=== PATIENT | female | born 1975 | race Caucasian/White ===

== ENCOUNTER 2017-11-29 00:09 | Emergency (ER) | payer SELFPAY | END 2017-11-29 01:23 | disposition left against medical advice (07) | LOC: ER 00:09 | DX: Z00.8 Encounter for other general examination (principal); Z53.21 Procedure and treatment not carried out due to patient leaving prior to being seen by health care provider ==

== ENCOUNTER 2018-03-06 13:55 | Emergency (ER) | payer SELFPAY ==
[~2018-03-06] VITALS: Ht 170.2 cm; Wt 77.0 kg
[2018-03-06 15:59] LABS: *BARBITURATES SCREEN URINE NEGATIVE (NEGATIVE); *COCAINE SCREEN URINE NEGATIVE (NEGATIVE); OPIATES URINE SCREEN NEGATIVE (NEGATIVE); PHENCYCLIDINE URINE SCREEN NEGATIVE (NEGATIVE)
[2018-03-06 16:00] LABS: *BENZODIAZEPINES SCREEN URINE NEGATIVE (NEGATIVE); METHADONE URINE SCREEN NEGATIVE (NEGATIVE)
[2018-03-06 16:02] LABS: *AMPHETAMINES SCREEN URINE PRESUMTIVE POSITIVE (NEGATIVE); CANNABINOID URINE SCREEN PRESUMTIVE POSITIVE (NEGATIVE)
[2018-03-06 17:04] LABS: CHLORIDE 106 mEq/L (98-107)
[2018-03-06 17:06] LABS: BASOPHILS % 0.8 % (0.0-2.0); EOSINOPHILS % 1.1 % (0.0-5.0); HEMATOCRIT. 38.9 % (36.0-48.0); HEMOGLOBIN. 13.2 g/dL (12.0-16.0); LYMPHOCYTES % 28.1 % (20.0-50.0); MEAN CORPUSCULAR HEMOGLOBIN 29.8 pg (28.0-32.0); MEAN CORPUSCULAR VOLUME 87.6 fL (81.0-99.0); MEAN PLATELET VOLUME 7.4 fl (7.4-10.4); MONOCYTES % 10.5 % (2.0-8.0); NEUTROPHILS % 59.5 % (40.0-76.0); PLATELET 384 x1000/uL (130-400); RED BLOOD CELL COUNT 4.44 mill/uL (4.2-5.4); RED CELL DISTRIBUTION WIDTH 13.9 % (11.6-14.6)
[2018-03-06 17:10] LABS: ETHANOL BLOOD < 10 mg/dL
[2018-03-06 17:11] LABS: HCG SCREEN NEGATIVE
[2018-03-07 13:09] VITALS: BP 125/70
== END 2018-03-07 13:14 | disposition home or self-care (01) ==
LOC: ER 13:55
DX: R44.0 Auditory hallucinations (principal); F32.9 Major depressive disorder, single episode, unspecified; F15.10 Other stimulant abuse, uncomplicated; F12.10 Cannabis abuse, uncomplicated; F17.200 Nicotine dependence, unspecified, uncomplicated; Z90.49 Acquired absence of other specified parts of digestive tract
CPT/HCPCS: 36415; 80048; 80305; 80307; 80329; 84703; 85025; 99284; G0482

== ENCOUNTER 2020-08-25 17:27 | Emergency (ER) | payer MEDICAID ==
[~2020-08-25] VITALS: Ht 167.6 cm; Wt 66.0 kg
[2020-08-25] MEDS ORDERED: ACETAMINOPHEN 325MG TABLET PO ONE (18:00)
[2020-08-25 20:28] VITALS: BP 118/77
== END 2020-08-25 20:30 | disposition home or self-care (01) ==
LOC: ER 17:27
DX: G89.29 Other chronic pain (principal); M25.561 Pain in right knee; M25.562 Pain in left knee; F31.9 Bipolar disorder, unspecified; F15.10 Other stimulant abuse, uncomplicated; Z90.49 Acquired absence of other specified parts of digestive tract
CPT/HCPCS: 73560; 73610; 99284

== ENCOUNTER 2021-04-11 17:25 | Emergency (ER) | payer MEDICAID, OTHER ==
[~2021-04-11] VITALS: Ht 170.2 cm; Wt 77.1 kg
[2021-04-11 18:10] VITALS: BP 100/78
[2021-04-11] MEDS ORDERED: IBUP-2028 MT (20:32)
== END 2021-04-11 20:58 | disposition home or self-care (01) ==
LOC: ER 17:25
DX: M72.2 Plantar fascial fibromatosis (principal); Z90.49 Acquired absence of other specified parts of digestive tract; Z88.8 Allergy status to other drugs, medicaments and biological substances
CPT/HCPCS: 81025; 99282

== ENCOUNTER 2021-06-14 07:36 | Emergency (ER) | payer MEDICAID, OTHER ==
[~2021-06-14] VITALS: Ht 170.2 cm; Wt 82.0 kg
[~2021-06-14 07:36] MED LIST: IBUP-2028 MT
[2021-06-14 07:39] VITALS: BP 96/95
== END 2021-06-14 07:59 | disposition home or self-care (01) ==
LOC: ER 07:36
DX: S30.861A Insect bite (nonvenomous) of abdominal wall, initial encounter (principal); S80.862A Insect bite (nonvenomous), left lower leg, initial encounter; S80.861A Insect bite (nonvenomous), right lower leg, initial encounter; S40.862A Insect bite (nonvenomous) of left upper arm, initial encounter; S40.861A Insect bite (nonvenomous) of right upper arm, initial encounter; F15.10 Other stimulant abuse, uncomplicated; Z90.49 Acquired absence of other specified parts of digestive tract; Z88.8 Allergy status to other drugs, medicaments and biological substances; W57.XXXA Bitten or stung by nonvenomous insect and other nonvenomous arthropods, initial encounter; Y93.89 Activity, other specified; Y92.013 Bedroom of single-family (private) house as the place of occurrence of the external cause
CPT/HCPCS: 99281

== ENCOUNTER 2021-10-06 08:45 | Emergency (ER) | payer MEDICAID, OTHER ==
[~2021-10-06] VITALS: Ht 170.2 cm; Wt 86.0 kg
[2021-10-06 08:54] VITALS: BP 114/57
== END 2021-10-06 10:06 | disposition home or self-care (01) ==
LOC: ER 08:45
DX: M79.10 Myalgia, unspecified site (principal); F15.10 Other stimulant abuse, uncomplicated; Z59.00 Homelessness unspecified; Z86.59 Personal history of other mental and behavioral disorders; Z90.49 Acquired absence of other specified parts of digestive tract
CPT/HCPCS: 99281

== ENCOUNTER 2021-10-06 15:19 | Emergency (ER) | payer MEDICAID, OTHER ==
[~2021-10-06] VITALS: Ht 170.2 cm; Wt 86.0 kg
[2021-10-06 15:50] VITALS: BP 113/66
== END 2021-10-06 22:20 | disposition left against medical advice (07) ==
LOC: ER 15:19
DX: Z53.21 Procedure and treatment not carried out due to patient leaving prior to being seen by health care provider (principal)

== ENCOUNTER 2021-12-11 15:18 | Emergency (ER) | payer MEDICAID ==
[~2021-12-11] VITALS: Ht 172.7 cm; Wt 77.0 kg
[2021-12-11 15:32] VITALS: BP 91/66
[2021-12-11] MEDS ORDERED: BACITRACIN ZINC OINT UDPKT TOP ONE (17:45)
[2021-12-11] MEDS ORDERED: LIDOCAINE HCL/EPINEPHRINE 1%-EPI 1:100,000 20 ML VIAL INFIL ONE (17:45)
[2021-12-11] MEDS ORDERED: SULFAMETHOXAZOLE/TRIMETHOPRIM 800/160MG TABLET PO ONE (18:15)
[2021-12-11] MEDS ORDERED: SULF1TAB48 MT (18:32)
[2021-12-11] MEDS ORDERED: IBUP-2029 MT (18:32)
== END 2021-12-11 18:53 | disposition home or self-care (01) ==
LOC: ER 15:18
DX: L03.317 Cellulitis of buttock (principal); L02.31 Cutaneous abscess of buttock; F15.10 Other stimulant abuse, uncomplicated; F17.210 Nicotine dependence, cigarettes, uncomplicated; Z90.49 Acquired absence of other specified parts of digestive tract; Z88.8 Allergy status to other drugs, medicaments and biological substances
CPT/HCPCS: 10060; 81025; 99283; J3490

== ENCOUNTER 2021-12-13 07:48 | Emergency (ER) | payer MEDICAID ==
[~2021-12-13] VITALS: Ht 170.2 cm; Wt 86.0 kg
[~2021-12-13 07:48] MED LIST changes: +IBUP-2029 MT; +SULF1TAB48 MT
[2021-12-13 07:55] VITALS: BP 108/72
== END 2021-12-13 09:22 | disposition home or self-care (01) ==
LOC: ER 08:17
DX: Z48.00 Encounter for change or removal of nonsurgical wound dressing (principal)
CPT/HCPCS: 99281

== ENCOUNTER 2022-04-30 05:31 | Emergency (ER) | payer MEDICAID, OTHER ==
[~2022-04-30] VITALS: Ht 170.2 cm; Wt 91.0 kg
[2022-04-30 06:09] VITALS: BP 91/60
[2022-04-30 08:54] LABS: BASOPHILS % 0.5 % (0.0-2.0); EOSINOPHILS % 1.3 % (0.0-5.0); HEMATOCRIT. 32.5 % (36.0-48.0); LYMPHOCYTES % 27.1 % (20.0-50.0); MEAN CORPUSCULAR VOLUME 85.7 fL (81.0-99.0); MEAN PLATELET VOLUME 7.2 fl (7.4-10.4); NEUTROPHILS % 59.1 % (40.0-76.0); PLATELET 317 x1000/uL (130-400); RED BLOOD CELL COUNT 3.79 mill/uL (4.2-5.4); RED CELL DISTRIBUTION WIDTH 14.3 % (11.6-14.6)
[2022-04-30 08:58] LABS: CHLORIDE 105 mEq/L (98-107)
[2022-04-30 09:06] LABS: ETHANOL BLOOD < 10 mg/dL
== END 2022-04-30 09:40 | disposition home or self-care (01) ==
LOC: ER 05:31
DX: M79.651 Pain in right thigh (principal); F15.10 Other stimulant abuse, uncomplicated; Z59.00 Homelessness unspecified; Z90.49 Acquired absence of other specified parts of digestive tract; Z88.8 Allergy status to other drugs, medicaments and biological substances
CPT/HCPCS: 36415; 80053; 80320; 85025; 99283; G0480

== ENCOUNTER 2025-02-14 10:27 | Emergency (ER) | payer MEDICAID, OTHER ==
[~2025-02-14] VITALS: Ht 167.6 cm; Wt 105.6 kg
[2025-02-14 10:32] VITALS: O2SAT 98
[2025-02-14 10:37] VITALS: BP 131/83; PULSE 102; RESP 14; TEMP 36.9; O2SAT 100
[2025-02-14 11:17] LABS: BASOPHILS % 0.6 % (0.0-2.0); EOSINOPHILS % 0.2 % (0.0-5.0); HEMATOCRIT. 37.9 % (36.0-48.0); HEMOGLOBIN. 12.6 g/dL (12.0-16.0); LYMPHOCYTES % 24.9 % (20.0-50.0); MEAN PLATELET VOLUME 7.3 fl (7.4-10.4); MONOCYTES % 9.3 % (2.0-8.0); NEUTROPHILS % 65.0 % (40.0-76.0); PLATELET 381 x1000/uL (130-400); RED BLOOD CELL COUNT 4.47 mill/uL (4.2-5.4); RED CELL DISTRIBUTION WIDTH 15.0 % (11.6-14.6)
[2025-02-14 11:25] LABS: CREATININE 0.9 mg/dL (0.6-1.0)
[2025-02-14 11:26] LABS: UREA NITROGEN BLOOD 24 mg/dL (9-23)
[2025-02-14 12:29] LABS: ASPARTATE AMINOTRANSFERASE 31 IU/L (<34)
[2025-02-14 12:30] LABS: BILIRUBIN DIRECT 0.1 mg/dL (<=3.0); BILIRUBIN TOTAL 0.4 mg/dL (0.1-1.0); PROTEIN TOTAL 8.0 g/dL (6.0-8.3)
[2025-02-14 14:08] LABS: CLARITY URINE CLEAR (CLEAR); COLOR URINE YELLOW (YELLOW); GLUCOSE URINE NEGATIVE (NEGATIVE); KETONES URINE NEGATIVE (NEGATIVE); LEUKOCYTE ESTERASE URINE 1+ (NEGATIVE); NITRITE URINE NEGATIVE (NEGATIVE); OCCULT BLOOD URINE 2+ (NEGATIVE); PH URINE 6.0 (4.5-8.0); PROTEIN URINE NEGATIVE (NEGATIVE); SPECIFIC GRAVITY URINE 1.022 (1.005-1.030); UROBILINOGEN URINE 1.0 E.U./dL (0.2-1.0)
[2025-02-14 14:16] LABS: UCG KIT EXPIRATION DATE 01/03/2027; UCG KIT LOT# 0000958452; UCG SCREEN NEGATIVE
[2025-02-14] MEDS ORDERED: SULF1TAB48 MT (14:22)
[2025-02-14 16:02] LABS: BACTERIA URINE 1+; SQUAMOUS EPITHELIAL CELL URINE 1+ /lpf (RARE/1+)
== END 2025-02-14 14:39 | disposition home or self-care (01) ==
LOC: ER 10:27
DX: N12 Tubulo-interstitial nephritis, not specified as acute or chronic (principal); F15.10 Other stimulant abuse, uncomplicated; F31.9 Bipolar disorder, unspecified; Z88.8 Allergy status to other drugs, medicaments and biological substances; Z90.49 Acquired absence of other specified parts of digestive tract; Z79.899 Other long term (current) drug therapy; Z98.890 Other specified postprocedural states
CPT/HCPCS: 36415; 76705; 80048; 80076; 81003; 81025; 85025; 93005; 99284